=== PATIENT | male | born 1995 | race American Indian/Alaskan Native ===

== ENCOUNTER 2016-12-31 20:09 | Emergency (ER) | payer OTHER ==
[2016-12-31 21:08] VITALS: BP 128/61
[2016-12-31] MEDS ORDERED: MOTRIN PO ONE (23:59)
[2016-12-31] MEDS ORDERED: TRIPLE ANTIBIOTIC TP ONE (23:59)
[2016-12-31] MEDS ORDERED: BOOSTRIX IM ONE (23:59)
[2017-01-01] MEDS ORDERED: XYLOCAINE 1% MPF 5 mL INFILTRATI ONE
--- NOTE | 2017-01-01 | Emergency Department Report ---
- General Chief Complaint: Skin/Abscess/Foreign Body Stated Complaint: R HAND AILYN NAIL PUNCTURE Time Seen by Provider: 12/31/16 23:17 Source: patient Mode of arrival: Ambulatory Limitations: No Limitations - History of Present Illness Initial Comments: 21-year-old male past medical history asthma presents with complaint of small puncture wound to right palm. 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 Occurred this afternoon. Denies any other injuries. No significant bleeding, small abrasion/puncture wound visible right thenar eminence on the palm less than 1 cm in length. Patient states he feels some mild discomfort in region. States he washed it immediately after getting poked -: This afternoon - Related Data Previous Rx's Medication Instructions Recorded Last Taken Type Cephalexin [Keflex] 500 mg PO Q12HR #14 cap 01/01/17 Unknown Rx Ibuprofen [Motrin] 600 mg PO Q8H PRN #20 tablet 01/01/17 Unknown Rx Neomycn/Baci Zn/Pmyx Bs/Pramox 28 gm TP BID #1 oint...g. 01/01/17 Unknown Rx [Triple Antibioti-Pain Rlf Oint] Allergies Allergy/AdvReac Type Severity Reaction Status Date / Time No Known Allergies Allergy Verified 12/31/16 21:08 ED Review of Systems ROS: Stated complaint: R HAND AILYN NAIL PUNCTURE Other details as noted in HPI ED Past Medical Hx - Past Medical History Previous Medical History?: Yes Hx Asthma: Yes (as child) - Surgical History Past Surgical History?: No - Social History Smoking Status: Never Smoker Substance Use Type: None - Medications Home Medications: Home Medications Medication Instructions Recorded Confirmed Last Taken Type Cephalexin [Keflex] 500 mg PO Q12HR #14 cap 01/01/17 Unknown Rx Ibuprofen [Motrin] 600 mg PO Q8H PRN #20 tablet 01/01/17 Unknown Rx Neomycn/Baci Zn/Pmyx Bs/Pramox 28 gm TP BID #1 oint...g. 01/01/17 Unknown Rx [Triple Antibioti-Pain Rlf Oint] ED Physical Exam - General Limitations: No Limitations General appearance: alert, in no apparent distress - Head Head exam: Present: atraumatic, normocephalic - Eye Eye exam: Present: normal appearance, PERRL, EOMI - ENT ENT exam: Present: mucous membranes moist - Neck Neck exam: Present: normal inspection - Respiratory Respiratory exam: Present: normal lung sounds bilaterally. Absent: respiratory distress - Cardiovascular Cardiovascular Exam: Present: regular rate, normal rhythm. Absent: systolic murmur, diastolic murmur, rubs, gallop - GI/Abdominal GI/Abdominal exam: Present: soft, normal bowel sounds - Rectal Rectal exam: Present: deferred - Extremities Exam Extremities exam: Present: normal inspection - Expanded Upper Extremity Exam Right Shoulder Exam: Present: normal inspection, full ROM Upper Arm exam: Present: normal inspection, full ROM Elbow exam: Present: normal inspection, full ROM Forearm Wrist exam: Present: normal inspection, full ROM Hand Wrist exam: Present: abrasion (abrasion/small puncture wound less than half a centimeter right thenar eminence) Hand L/R Front: 1 - Positive: abrasion Neuro motor exam: Present: wrist extension intact, thumb opposition intact, thumb IP flexion intact, thumb adduction intact, fingers 2-5 abduction intact Neurosensory exam: Present: ulnar nerve intact, median nerve intact Vascular: Present: normal capillary refill, radial pulse (intact palpation), ulnar pulse (intact to palpation) - Back Exam Back exam: Present: normal inspection - Neurological Exam Neurological exam: Present: alert, oriented X3 - Psychiatric Psychiatric exam: Present: normal affect, normal mood - Skin Skin exam: Present: warm, dry, intact, normal color. Absent: rash ED Course Vital Signs 12/31/16 21:04 Temperature 98.2 F Pulse Rate 76 Respiratory 18 Rate Blood Pressure 128/61 O2 Sat by Pulse 97 Oximetry ED Medical Decision Making - Medical Decision Making A/P: Superficial abrasion right hand, puncture wound ailyn nail 1-tetanus updated today 2-antibiotic ointment to site, wound briefly explored with forceps, not deep on exploration, no foreign body, very superficial 3-course of Keflex to mitigate any infection 4-I advised patient to return if he notices any pus drainage significant redness increased pain. Hand range of motion fully intact there is no snuffbox tenderness distal sensation is intact Capillary refill less than one second offering Critical care attestation.: If time is entered above; I have spent that time in minutes in the direct care of this critically ill patient, excluding procedure time. ED Disposition Clinical Impression: Superficial abrasion, Puncture wound Disposition: TO HOME OR SELFCARE Is pt being admited?: No Does the pt Need Aspirin: No Condition: Stable Instructions: Puncture Wound (ED), Abrasion (ED) Prescriptions: Cephalexin [Keflex] 500 mg PO Q12HR #14 cap Ibuprofen [Motrin] 600 mg PO Q8H PRN #20 tablet PRN Reason: Pain Neomycn/Baci Zn/Pmyx Bs/Pramox [Triple Antibioti-Pain Rlf Oint] 28 gm TP BID #1 oint...g. Referrals: [facility] [Provider Group] - 3-5 Days Forms: Work/School Release Form(ED) Time of Disposition: 00:35
== END 2017-01-01 00:44 | disposition home or self-care (01) ==
LOC: ED 20:09
DX: S61.431A Puncture wound without foreign body of right hand, initial encounter (principal); J45.909 Unspecified asthma, uncomplicated; W22.8XXA Striking against or struck by other objects, initial encounter; Y93.89 Activity, other specified; Y92.89 Other specified places as the place of occurrence of the external cause; Y99.8 Other external cause status
CPT/HCPCS: 90471; 90715; A6250